=== PATIENT | male | born 1995 | race Caucasian/White ===

== ENCOUNTER 2022-08-21 09:48 | Emergency (ER) | payer SELFPAY ==
[2022-08-21 11:54] LABS: CORONAVIRUS COVID-19 NAA POSITIVE (NEGATIVE)
== END 2022-08-21 12:40 | disposition home or self-care (01) ==
LOC: JD.ED 09:48
DX: U07.1 COVID-19 (principal)
CPT/HCPCS: 0241U; 87651; 99283